=== PATIENT | female | born 1980 | race Caucasian/White ===

== ENCOUNTER 2018-02-21 21:50 | Inpatient (IN) | payer MEDICAID ==
[~2018-02-21] VITALS: Ht 157.5 cm; Wt 68.7 kg
[~2018-02-21 21:50] MED LIST: OLAN10TA3 PO
[2018-02-21 22:53] VITALS: BP 103/73
[2018-02-21] MEDS ORDERED: LORazepam 2 MG TABLET PO PRN (23:00)
[2018-02-21] MEDS ORDERED: OLANZapine 5 MG RAPDIS TABLET PO PRN (23:00)
[2018-02-21] MEDS ORDERED: PNEUMOCOCCAL VACCINE POLYVALENT 0.5 ML VIAL [PPSV23] IM ONE (23:15)
[2018-02-22] MEDS: OLANZapine 10 MG TABLET PO SCH ×2 (00:06→21:00)
[2018-02-22 00:07] VITALS: BP 139/88
[2018-02-22] MEDS: NICOTINE 21 MG/24 HOUR PATCH TD SCH ×2 (08:31→14:17)
[2018-02-22 08:37] LABS: BASOPHILS % (AUTO) 0.5 % (0.0-2.0); EOSINOPHILS % (AUTO) 2.4 % (1.0-6.0); HEMATOCRIT 36.6 % (36-46); HEMOGLOBIN 12.6 g/dL (12.0-16.0); LYMPHOCYTES # (AUTO) 2.8 K/uL (1.0-4.8); LYMPHOCYTES % (AUTO) 35.6 % (22.0-44.0); MEAN CORPUSCULAR HEMOGLOBIN 28.9 pg (26.0-34.0); MEAN CORPUSCULAR HGB CONC 34.5 G/dL (31.0-37.0); MEAN CORPUSCULAR VOLUME 84 fL (80-100); MONOCYTES # (AUTO) 0.4 K/uL (0.1-1.0); MONOCYTES % (AUTO) 5.6 % (2.0-9.0); NEUTROPHILS # (AUTO) 4.4 K/uL (1.8-7.7); NEUTROPHILS % (AUTO) 55.9 % (40.0-70.0); PLATELET COUNT (AUTO) 304 K/uL (150-450); RED BLOOD CELL COUNT(AUTO) 4.37 MIL/uL (4.00-5.20); RED CELL DISTRIBUTION WIDTH 15.5 % (11.5-14.5)
[2018-02-22 08:57] LABS: ALANINE AMINOTRANSFERASE 30 U/L (12-78); ALBUMIN 2.8 g/dL (3.4-5.0); ALKALINE PHOSPHATASE 63 U/L (46-116); ANION GAP 7 mmol/L (8-16); ASPARTATE AMINOTRANSFERASE 36 U/L (15-37); BILIRUBIN,TOTAL 0.6 mg/dL (0.1-1.0); CALCIUM, TOTAL 8.3 mg/dL (8.8-10.5); CARBON DIOXIDE 28 mmol/L (22-29); CHLORIDE 105 mmol/L (98-107); CREATININE 0.67 mg/dL (0.60-1.30); GLOMERULAR FILTR. RATE CALC > 60 mL/min (>60); GLUCOSE,RANDOM 95 mg/dL (70-110); HCG,QUANTITATIVE < 1 mIU/mL (0-6); POTASSIUM 3.4 mmol/L (3.5-5.1); SODIUM SERUM 140 mmol/L (136-145); TOTAL PROTEIN, SERUM 5.9 g/dL (6.4-8.2); UREA NITROGEN, BLOOD 19 mg/dL (7-18)
[2018-02-22 09:39] VITALS: BP 143/70
[2018-02-22 09:53] LABS: AMPHET/METH SCREEN,URINE POSITIVE (NEGATIVE); BARBITURATE SCREEN, URINE NEGATIVE (NEGATIVE); BENZODIAZEPINES SCREEN,URINE NEGATIVE (NEGATIVE); CANNABINOID SCREEN,URINE POSITIVE (NEGATIVE); COCAINE SCREEN,URINE NEGATIVE (NEGATIVE); METHADONE SCREEN, URINE NEGATIVE (NEGATIVE); OPIATE SCREEN,URINE NEGATIVE (NEGATIVE)
[2018-02-22 09:55] LABS: PHENCYCLIDINE SCREEN,URINE NEGATIVE (NEGATIVE)
[2018-02-22] MEDS ORDERED: IBUPROFEN 400 MG TABLET PO PRN (10:00)
[2018-02-22] MEDS ORDERED: ACETAMINOPHEN 325 MG TABLET PO PRN (10:00)
[2018-02-22 10:46] LABS: APPEARANCE,URINE TURBID (CLEAR); BILIRUBIN,URINE NEGATIVE (NEGATIVE); GLUCOSE, URINE (UA) NEGATIVE (NEGATIVE); KETONES,URINE NEGATIVE (NEGATIVE); LEUKOCYTE ESTERASE ,URINE NEGATIVE (NEGATIVE); NITRATE,URINE NEGATIVE (NEGATIVE); OCCULT BLOOD,URINE NEGATIVE (NEGATIVE); PROTEIN,URINE POS 1+ (NEGATIVE); UROBILINOGEN,URINE 0.2 mg/dL (<=1.0)
[2018-02-22 11:07] LABS: AMORPHOUS SEDIMENT,UR Many /LPF (None Seen); BACTERIA,URINE None Seen /HPF (None Seen); RBC,URINE None Seen /HPF (0-2); SQUAMOUS EPITHELIAL CELL,UR Few /LPF (None Seen); WBC,URINE None Seen /HPF (0-5)
[2018-02-22] MEDS ORDERED: POTASSIUM CHLORIDE 20 MEQ ER TABLET PO ONE (12:15)
[2018-02-22 16:57] VITALS: BP 107/68
[2018-02-23 06:47] VITALS: BP 110/68
[2018-02-23 08:12] LABS: HEMOGLOBIN A1C 5.7 % (4.5-6.2)
[2018-02-23 08:31] LABS: POTASSIUM 4.4 mmol/L (3.5-5.1); THYROID STIMULATING HORMONE 0.97 uIU/mL (0.36-3.74)
[2018-02-23 08:57] VITALS: BP 117/74
[2018-02-23] MEDS: NICOTINE 21 MG/24 HOUR PATCH TD SCH (09:00)
[2018-02-23 18:13] VITALS: BP 125/83
[2018-02-23] MEDS: OLANZapine 10 MG TABLET PO SCH (20:45)
[2018-02-24 06:22] VITALS: BP 105/60
[2018-02-24 08:29] VITALS: BP 121/76
[2018-02-24] MEDS: NICOTINE 21 MG/24 HOUR PATCH TD SCH (09:00)
[2018-02-24 17:23] VITALS: BP 121/71
[2018-02-24] MEDS: OLANZapine 10 MG TABLET PO SCH (20:36)
[2018-02-25 06:25] VITALS: BP 113/64
[2018-02-25] MEDS: NICOTINE 21 MG/24 HOUR PATCH TD SCH (09:00)
[2018-02-25 16:30] VITALS: BP 109/66
[2018-02-25] MEDS: OLANZapine 10 MG TABLET PO SCH (20:25)
[2018-02-26 06:33] VITALS: BP 108/63
[2018-02-26] MEDS: NICOTINE 21 MG/24 HOUR PATCH TD SCH (08:52)
[2018-02-26 09:00] VITALS: BP 109/64
== END 2018-02-26 13:30 | disposition home or self-care (01) | DRG 750 ==
LOC: EDSTATUS 23:01 → B2S 23:04
PROVIDERS: ADMIT Psychiatry & Neurology Psychiatry; ATTEND Psychiatry & Neurology Psychiatry
DX: F20.9 Schizophrenia, unspecified (principal); R45.851 Suicidal ideations; Z59.0 Homelessness; I10 Essential (primary) hypertension; E87.6 Hypokalemia; F10.10 Alcohol abuse, uncomplicated; F31.9 Bipolar disorder, unspecified; F19.10 Other psychoactive substance abuse, uncomplicated; K21.9 Gastro-esophageal reflux disease without esophagitis; Z88.8 Allergy status to other drugs, medicaments and biological substances
CPT/HCPCS: 80307; 83036; 84132; 84443; 86592; 90471

== ENCOUNTER 2018-03-08 11:16 | Inpatient (IN) | payer MEDICAID, OTHER ==
[~2018-03-08] VITALS: Ht 157.5 cm; Wt 64.0 kg
[2018-03-08] MEDS ORDERED: OLANZapine 5 MG TABLET PO ONE (13:15)
[2018-03-08 13:31] LABS: BASOPHILS % (AUTO) 0.6 % (0.0-2.0); EOSINOPHILS % (AUTO) 1.6 % (1.0-6.0); HEMATOCRIT 38.9 % (36-46); HEMOGLOBIN 13.3 g/dL (12.0-16.0); LYMPHOCYTES # (AUTO) 3.7 K/uL (1.0-4.8); LYMPHOCYTES % (AUTO) 34.7 % (22.0-44.0); MEAN CORPUSCULAR HEMOGLOBIN 29.1 pg (26.0-34.0); MEAN CORPUSCULAR HGB CONC 34.2 G/dL (31.0-37.0); MEAN CORPUSCULAR VOLUME 85 fL (80-100); MONOCYTES # (AUTO) 0.6 K/uL (0.1-1.0); MONOCYTES % (AUTO) 5.5 % (2.0-9.0); NEUTROPHILS % (AUTO) 57.6 % (40.0-70.0); PLATELET COUNT (AUTO) 332 K/uL (150-450); RED BLOOD CELL COUNT(AUTO) 4.57 MIL/uL (4.00-5.20); RED CELL DISTRIBUTION WIDTH 15.7 % (11.5-14.5)
[2018-03-08 13:38] LABS: ANION GAP 7 mmol/L (8-16); CARBON DIOXIDE 30 mmol/L (22-29); CHLORIDE 106 mmol/L (98-107); CREATININE 1.01 mg/dL (0.60-1.30); GLOMERULAR FILTR. RATE CALC > 60 mL/min (>60); GLUCOSE,RANDOM 111 mg/dL (70-110); POTASSIUM 3.8 mmol/L (3.5-5.1); SODIUM SERUM 143 mmol/L (136-145); UREA NITROGEN, BLOOD 19 mg/dL (7-18)
[2018-03-08 13:44] LABS: ALANINE AMINOTRANSFERASE 32 U/L (12-78); ALBUMIN 3.7 g/dL (3.4-5.0); ALKALINE PHOSPHATASE 76 U/L (46-116); ASPARTATE AMINOTRANSFERASE 32 U/L (15-37); BILIRUBIN,TOTAL 0.8 mg/dL (0.1-1.0); TOTAL PROTEIN, SERUM 7.1 g/dL (6.4-8.2)
[2018-03-08] MEDS ORDERED: LORazepam 2 MG TABLET PO ONE (13:45)
[2018-03-08] MEDS ORDERED: LORazepam 2 MG/ML VIAL IM ONE (14:00)
[2018-03-08] MEDS ORDERED: DiphenhydrAMINE HCL 50 MG/ML VIAL IM ONE (14:00)
[2018-03-08] MEDS ORDERED: LORazepam 2 MG TABLET ONE (14:15)
[2018-03-08] MEDS ORDERED: ZOLPIDEM TARTRATE 10 MG TABLET PO PRN (14:45)
[2018-03-08 15:19] LABS: CHOLESTEROL 181 mg/dL (131-200); FREE T4 (FREE THYROXINE) 0.96 ng/dL (0.76-1.46); HDL CHOLESTEROL 90 mg/dL (40-60); LDL CHOL (CALC.) 79 mg/dL (0-130); THYROID STIMULATING HORMONE 2.09 uIU/mL (0.36-3.74); TRIGLYCERIDES 60 mg/dL (15-150)
[2018-03-09 13:45] VITALS: BP 108/62
[2018-03-09 16:05] VITALS: BP 113/72
[2018-03-09] MEDS: OLANZapine 10 MG TABLET PO SCH (20:52)
[2018-03-10 06:09] VITALS: BP 131/88
[2018-03-10 08:06] VITALS: BP 118/69
[2018-03-10] MEDS ORDERED: ACETAMINOPHEN 325 MG TABLET PO PRN (14:15)
[2018-03-10] MEDS ORDERED: IBUPROFEN 400 MG TABLET PO PRN (14:15)
[2018-03-10 16:18] VITALS: BP 138/66
[2018-03-10] MEDS: OLANZapine 5 MG TABLET PO PRN (17:58)
[2018-03-10] MEDS: LORazepam 2 MG TABLET PO PRN (17:58)
[2018-03-10] MEDS: OLANZapine 10 MG TABLET PO SCH (20:26)
[2018-03-11 03:58] VITALS: BP 121/77
[2018-03-11 08:18] LABS: HEMOGLOBIN A1C 5.7 % (4.5-6.2)
[2018-03-11 08:19] LABS: THYROID STIMULATING HORMONE 0.97 uIU/mL (0.36-3.74)
[2018-03-11 08:22] VITALS: BP 119/58
[2018-03-11 08:28] LABS: AMPHET/METH SCREEN,URINE NEGATIVE (NEGATIVE); BARBITURATE SCREEN, URINE NEGATIVE (NEGATIVE); BENZODIAZEPINES SCREEN,URINE NEGATIVE (NEGATIVE); CANNABINOID SCREEN,URINE POSITIVE (NEGATIVE); COCAINE SCREEN,URINE NEGATIVE (NEGATIVE); METHADONE SCREEN, URINE NEGATIVE (NEGATIVE); OPIATE SCREEN,URINE NEGATIVE (NEGATIVE)
[2018-03-11 08:30] LABS: PHENCYCLIDINE SCREEN,URINE NEGATIVE (NEGATIVE)
[2018-03-11 09:41] LABS: APPEARANCE,URINE CLOUDY (CLEAR); BILIRUBIN,URINE NEGATIVE (NEGATIVE); GLUCOSE, URINE (UA) NEGATIVE (NEGATIVE); KETONES,URINE NEGATIVE (NEGATIVE); LEUKOCYTE ESTERASE ,URINE SMALL (NEGATIVE); NITRATE,URINE NEGATIVE (NEGATIVE); OCCULT BLOOD,URINE NEGATIVE (NEGATIVE); PROTEIN,URINE NEGATIVE (NEGATIVE); UROBILINOGEN,URINE 0.2 mg/dL (<=1.0)
[2018-03-11 10:25] LABS: BACTERIA,URINE None Seen /HPF (None Seen); RBC,URINE 0-2 /HPF (0-2)
[2018-03-11 10:26] LABS: SQUAMOUS EPITHELIAL CELL,UR Few /LPF (None Seen)
[2018-03-11 16:04] VITALS: BP 109/69
[2018-03-11] MEDS: LORazepam 2 MG TABLET PO PRN (16:11)
[2018-03-11 17:11] VITALS: BP 112/65
[2018-03-11] MEDS: OLANZapine 10 MG TABLET PO SCH (20:59)
[2018-03-12 01:16] VITALS: BP 124/67
[2018-03-12 08:45] VITALS: BP 120/79
[2018-03-12] MEDS: LORazepam 2 MG TABLET PO PRN (12:56)
[2018-03-12 16:16] VITALS: BP 112/67
[2018-03-12] MEDS: OLANZapine 10 MG TABLET PO SCH (20:17)
[2018-03-13 03:41] VITALS: BP 115/72
[2018-03-13] MEDS: LORazepam 2 MG TABLET PO PRN ×2 (08:00→16:09)
[2018-03-13 08:33] VITALS: BP 101/62
[2018-03-13 16:07] VITALS: BP 109/70
[2018-03-13] MEDS: OLANZapine 10 MG TABLET PO SCH (20:20)
[2018-03-14] MEDS: LORazepam 2 MG TABLET PO PRN ×2 (08:09→16:12)
[2018-03-14] MEDS: OLANZapine 5 MG TABLET PO PRN (08:09)
[2018-03-14 08:33] VITALS: BP 107/72
[2018-03-14 16:16] VITALS: BP 107/70
[2018-03-14] MEDS: OLANZapine 10 MG TABLET PO SCH (20:34)
[2018-03-15 04:45] VITALS: BP 113/78
[2018-03-15 08:32] VITALS: BP 122/73
[2018-03-15] MEDS ORDERED: OLAN10TA3 PO (10:47)
== END 2018-03-15 15:27 | disposition home or self-care (01) | DRG 750 ==
LOC: EEVIPCON 11:24 → EMS 11:24 → B3A 03-09 12:28
PROVIDERS: ADMIT Psychiatry & Neurology Psychiatry; ATTEND Psychiatry & Neurology Psychiatry
DX: F25.9 Schizoaffective disorder, unspecified (principal); Z91.14 Patient's other noncompliance with medication regimen; I10 Essential (primary) hypertension; F17.200 Nicotine dependence, unspecified, uncomplicated; F32.9 Major depressive disorder, single episode, unspecified; F41.9 Anxiety disorder, unspecified; F15.90 Other stimulant use, unspecified, uncomplicated; F12.90 Cannabis use, unspecified, uncomplicated; K21.9 Gastro-esophageal reflux disease without esophagitis; Z59.0 Homelessness; Z71.51 Drug abuse counseling and surveillance of drug abuser; Z71.6 Tobacco abuse counseling; Z88.8 Allergy status to other drugs, medicaments and biological substances
CPT/HCPCS: 83036; 84439; 84443; 87081; 96372; 99285; G0480; J1200; J2060

== ENCOUNTER 2018-05-27 20:06 | Inpatient (IN) | payer MEDICAID ==
[2018-05-27 20:46] VITALS: BP 149/87
[2018-05-27] MEDS ORDERED: LOPERAMIDE HCL 2 MG CAPSULE PO PRN (21:30)
[2018-05-27] MEDS ORDERED: IBUPROFEN 400 MG TABLET PO PRN (21:30)
[2018-05-27] MEDS ORDERED: ALBUTEROL SULFATE HFA 90 MCG/PUFF 8 GM INHALER IH PRN (21:30)
[2018-05-27] MEDS ORDERED: MAGNESIUM HYDROXIDE SUSPENSION 30 ML UDCUP PO PRN (21:30)
[2018-05-27] MEDS ORDERED: MAG HYDROX/AL HYDROX/SIMETH ES 30 ML SUSPENSION UDCUP PO PRN (21:30)
[2018-05-27] MEDS ORDERED: PETROLATUM,WHITE 71 GM JELLY TP PRN (21:30)
[2018-05-27] MEDS ORDERED: ACETAMINOPHEN 325 MG TABLET PO PRN (21:30)
[2018-05-27] MEDS ORDERED: ONDANSETRON HCL 4 MG TABLET PO PRN (21:30)
[2018-05-27] MEDS ORDERED: DOCUSATE SODIUM 100 MG CAPSULE PO PRN (21:30)
[2018-05-27] MEDS ORDERED: CloNIDine HCL 0.1 MG TABLET PO PRN (21:30)
[2018-05-27] MEDS: LORazepam 2 MG TABLET PO PRN (21:32)
[2018-05-28 06:36] VITALS: BP 128/80
[2018-05-28] MEDS: LORazepam 2 MG TABLET PO PRN ×2 (08:12→16:45)
[2018-05-28 08:14] VITALS: BP 113/62
[2018-05-28] MEDS: ZOLPIDEM TARTRATE 10 MG TABLET PO PRN (20:04)
[2018-05-28] MEDS: OLANZapine 10 MG TABLET PO SCH (20:04)
[2018-05-28 20:50] VITALS: BP 143/79
[2018-05-28 21:00] VITALS: BP 140/75
[2018-05-29 06:37] VITALS: BP 110/64
[2018-05-29 08:50] LABS: APPEARANCE,URINE CLEAR (CLEAR); BILIRUBIN,URINE NEGATIVE (NEGATIVE); GLUCOSE, URINE (UA) NEGATIVE (NEGATIVE); KETONES,URINE NEGATIVE (NEGATIVE); LEUKOCYTE ESTERASE ,URINE NEGATIVE (NEGATIVE); NITRATE,URINE NEGATIVE (NEGATIVE); OCCULT BLOOD,URINE NEGATIVE (NEGATIVE); PH,URINE 5.5 (5.0-8.0); PROTEIN,URINE NEGATIVE (NEGATIVE); UROBILINOGEN,URINE 0.2 mg/dL (<=1.0)
[2018-05-29 08:58] LABS: AMPHET/METH SCREEN,URINE NEGATIVE (NEGATIVE); BARBITURATE SCREEN, URINE NEGATIVE (NEGATIVE); BENZODIAZEPINES SCREEN,URINE NEGATIVE (NEGATIVE); CANNABINOID SCREEN,URINE NEGATIVE (NEGATIVE); COCAINE SCREEN,URINE NEGATIVE (NEGATIVE); METHADONE SCREEN, URINE NEGATIVE (NEGATIVE); OPIATE SCREEN,URINE NEGATIVE (NEGATIVE)
[2018-05-29 08:59] LABS: PHENCYCLIDINE SCREEN,URINE NEGATIVE (NEGATIVE)
[2018-05-29] MEDS: OLANZapine 10 MG TABLET PO SCH (20:06)
[2018-05-29] MEDS: ZOLPIDEM TARTRATE 10 MG TABLET PO PRN (21:11)
[2018-05-30] VITALS: BP 120/68
[2018-05-30] MEDS: LORazepam 2 MG TABLET PO PRN ×2 (12:28→17:05)
[2018-05-30 16:21] VITALS: BP 111/69
[2018-05-30] MEDS: OLANZapine 10 MG TABLET PO SCH (20:07)
[2018-05-31 06:30] VITALS: BP 114/72
[2018-05-31 08:34] VITALS: BP 129/67
[2018-05-31] MEDS: LORazepam 2 MG TABLET PO PRN ×2 (10:36→16:46)
[2018-05-31 16:17] VITALS: BP 112/68
[2018-05-31] MEDS: OLANZapine 10 MG TABLET PO SCH (20:52)
[2018-05-31] MEDS: ZOLPIDEM TARTRATE 10 MG TABLET PO PRN (20:53)
[2018-06-01 05:13] VITALS: BP 119/72
[2018-06-01 08:19] LABS: BASOPHILS % (AUTO) 0.4 % (0.0-2.0); EOSINOPHILS % (AUTO) 1.5 % (1.0-6.0); HEMATOCRIT 37.1 % (36-46); HEMOGLOBIN 12.9 g/dL (12.0-16.0); LYMPHOCYTES # (AUTO) 1.7 K/uL (1.0-4.8); LYMPHOCYTES % (AUTO) 26.5 % (22.0-44.0); MEAN CORPUSCULAR HEMOGLOBIN 29.9 pg (26.0-34.0); MEAN CORPUSCULAR HGB CONC 34.7 G/dL (31.0-37.0); MEAN CORPUSCULAR VOLUME 86 fL (80-100); MONOCYTES # (AUTO) 0.4 K/uL (0.1-1.0); MONOCYTES % (AUTO) 6.5 % (2.0-9.0); NEUTROPHILS # (AUTO) 4.2 K/uL (1.8-7.7); NEUTROPHILS % (AUTO) 65.1 % (40.0-70.0); PLATELET COUNT (AUTO) 234 K/uL (150-450); RED CELL DISTRIBUTION WIDTH 14.1 % (11.5-14.5)
[2018-06-01 08:34] LABS: HEMOGLOBIN A1C 5.1 % (4.5-6.2)
[2018-06-01 09:03] LABS: ALANINE AMINOTRANSFERASE 17 U/L (12-78); ALKALINE PHOSPHATASE 64 U/L (46-116); ANION GAP 8 mmol/L (8-16); ASPARTATE AMINOTRANSFERASE 17 U/L (15-37); BILIRUBIN,TOTAL 0.6 mg/dL (0.1-1.0); CALCIUM, TOTAL 8.2 mg/dL (8.8-10.5); CARBON DIOXIDE 29 mmol/L (22-29); CHLORIDE 102 mmol/L (98-107); CHOL/HDL RATIO 2.7 (3.9-5.7); CHOLESTEROL 126 mg/dL (131-200); CREATININE 0.68 mg/dL (0.60-1.30); FREE T4 (FREE THYROXINE) 0.75 ng/dL (0.76-1.46); GLOMERULAR FILTR. RATE CALC > 60 mL/min (>60); GLUCOSE,RANDOM 85 mg/dL (70-110); HCG,QUANTITATIVE 2 mIU/mL (0-6); HDL CHOLESTEROL 47 mg/dL (40-60); LDL CHOL (CALC.) 59 mg/dL (0-130); POTASSIUM 4.2 mmol/L (3.5-5.1); SODIUM SERUM 139 mmol/L (136-145); THYROID STIMULATING HORMONE 2.93 uIU/mL (0.36-3.74); TOTAL PROTEIN, SERUM 5.8 g/dL (6.4-8.2); TRIGLYCERIDES 102 mg/dL (15-150); UREA NITROGEN, BLOOD 17 mg/dL (7-18)
[2018-06-01] MEDS: LORazepam 2 MG TABLET PO PRN ×2 (12:05→16:23)
[2018-06-01 16:24] VITALS: BP 106/62
[2018-06-01] MEDS: OLANZapine 10 MG TABLET PO SCH (20:27)
[2018-06-01] MEDS: ZOLPIDEM TARTRATE 10 MG TABLET PO PRN (20:27)
[2018-06-02 08:30] VITALS: BP 118/69
[2018-06-02] MEDS: LORazepam 2 MG TABLET PO PRN ×2 (14:24→18:55)
[2018-06-02 16:32] VITALS: BP 118/72
[2018-06-02] MEDS: OLANZapine 10 MG TABLET PO SCH (20:15)
[2018-06-02] MEDS: ZOLPIDEM TARTRATE 10 MG TABLET PO PRN (21:27)
[2018-06-03 04:57] VITALS: BP 115/75
[2018-06-03 08:20] VITALS: BP 116/60
[2018-06-03] MEDS: LORazepam 2 MG TABLET PO PRN (14:22)
[2018-06-03] MEDS: ZOLPIDEM TARTRATE 10 MG TABLET PO PRN (20:10)
[2018-06-03] MEDS: OLANZapine 10 MG TABLET PO SCH (20:10)
[2018-06-04 04:29] VITALS: BP 117/68
[2018-06-04 08:29] VITALS: BP 116/86
[2018-06-04] MEDS: LORazepam 2 MG TABLET PO PRN (12:12)
[2018-06-04] MEDS: OLANZapine 10 MG TABLET PO SCH (21:10)
[2018-06-05 08:22] VITALS: BP 118/71
[2018-06-05] MEDS: LORazepam 2 MG TABLET PO PRN ×2 (12:24→17:46)
[2018-06-05] MEDS: ZOLPIDEM TARTRATE 10 MG TABLET PO PRN (20:36)
[2018-06-05] MEDS: OLANZapine 10 MG TABLET PO SCH (20:36)
[2018-06-06 06:06] VITALS: BP 117/68
== END 2018-06-06 15:45 | disposition home or self-care (01) | DRG 750 ==
LOC: B3A 20:32
PROVIDERS: ADMIT Psychiatry & Neurology Psychiatry; ATTEND Psychiatry & Neurology Psychiatry
DX: F25.9 Schizoaffective disorder, unspecified (principal); Z59.0 Homelessness; F41.9 Anxiety disorder, unspecified; F17.200 Nicotine dependence, unspecified, uncomplicated; G47.00 Insomnia, unspecified; K21.9 Gastro-esophageal reflux disease without esophagitis; F12.90 Cannabis use, unspecified, uncomplicated; F10.10 Alcohol abuse, uncomplicated; Z71.6 Tobacco abuse counseling
CPT/HCPCS: 80307; 83036; 84439; 84443

== ENCOUNTER 2018-06-07 10:44 | Emergency (ER) | payer MEDICAID ==
[~2018-06-07] VITALS: Ht 167.6 cm; Wt 84.5 kg
[2018-06-07] MEDS ORDERED: OLANZapine 5 MG TABLET PO ONE (11:00)
[2018-06-07] MEDS ORDERED: LORazepam 2 MG TABLET PO ONE (11:00)
[2018-06-07 11:13] LABS: BASOPHILS % (AUTO) 0.2 % (0.0-2.0); EOSINOPHILS % (AUTO) 0.1 % (1.0-6.0); HEMATOCRIT 38.6 % (36-46); HEMOGLOBIN 13.1 g/dL (12.0-16.0); LYMPHOCYTES # (AUTO) 1.9 K/uL (1.0-4.8); LYMPHOCYTES % (AUTO) 17.9 % (22.0-44.0); MEAN CORPUSCULAR HEMOGLOBIN 29.5 pg (26.0-34.0); MEAN CORPUSCULAR HGB CONC 33.9 G/dL (31.0-37.0); MEAN CORPUSCULAR VOLUME 87 fL (80-100); MONOCYTES # (AUTO) 0.7 K/uL (0.1-1.0); MONOCYTES % (AUTO) 6.6 % (2.0-9.0); NEUTROPHILS # (AUTO) 8.2 K/uL (1.8-7.7); NEUTROPHILS % (AUTO) 75.2 % (40.0-70.0); PLATELET COUNT (AUTO) 426 K/uL (150-450); RED BLOOD CELL COUNT(AUTO) 4.44 MIL/uL (4.00-5.20); RED CELL DISTRIBUTION WIDTH 14.1 % (11.5-14.5)
[2018-06-07 11:32] LABS: ANION GAP 11 mmol/L (8-16); CALCIUM, TOTAL 9.1 mg/dL (8.8-10.5); CARBON DIOXIDE 29 mmol/L (22-29); CHLORIDE 105 mmol/L (98-107); CREATININE 0.99 mg/dL (0.60-1.30); GLOMERULAR FILTR. RATE CALC > 60 mL/min (>60); GLUCOSE,RANDOM 107 mg/dL (70-110); POTASSIUM 3.8 mmol/L (3.5-5.1); SODIUM SERUM 145 mmol/L (136-145); UREA NITROGEN, BLOOD 21 mg/dL (7-18)
[2018-06-07 11:37] LABS: ALANINE AMINOTRANSFERASE 38 U/L (12-78); ALBUMIN 4.2 g/dL (3.4-5.0); ALKALINE PHOSPHATASE 82 U/L (46-116); ASPARTATE AMINOTRANSFERASE 69 U/L (15-37); BILIRUBIN,TOTAL 0.6 mg/dL (0.1-1.0); TOTAL PROTEIN, SERUM 8.1 g/dL (6.4-8.2)
[2018-06-07 12:38] LABS: AMPHET/METH SCREEN,URINE POSITIVE (NEGATIVE); BARBITURATE SCREEN, URINE NEGATIVE (NEGATIVE); BENZODIAZEPINES SCREEN,URINE NEGATIVE (NEGATIVE); CANNABINOID SCREEN,URINE POSITIVE (NEGATIVE); COCAINE SCREEN,URINE NEGATIVE (NEGATIVE); METHADONE SCREEN, URINE NEGATIVE (NEGATIVE); OPIATE SCREEN,URINE NEGATIVE (NEGATIVE)
[2018-06-07 12:39] LABS: PHENCYCLIDINE SCREEN,URINE NEGATIVE (NEGATIVE)
[2018-06-07 13:51] VITALS: BP 142/86
== END 2018-06-07 14:00 | disposition home or self-care (01) ==
LOC: EMS 10:45
DX: F25.9 Schizoaffective disorder, unspecified (principal); F15.10 Other stimulant abuse, uncomplicated; F12.10 Cannabis abuse, uncomplicated; F31.9 Bipolar disorder, unspecified; F20.9 Schizophrenia, unspecified; F17.210 Nicotine dependence, cigarettes, uncomplicated; Z88.8 Allergy status to other drugs, medicaments and biological substances
CPT/HCPCS: 36415; 80053; 80307; 85025; 99285; 99406; G0480

== ENCOUNTER 2018-09-17 14:41 | Emergency (ER) | payer MEDICAID | END 2018-09-17 15:03 | disposition left against medical advice (07) | LOC: EMS 14:42 | DX: Z00.00 Encounter for general adult medical examination without abnormal findings (principal); Z53.21 Procedure and treatment not carried out due to patient leaving prior to being seen by health care provider ==

== ENCOUNTER 2021-01-03 18:09 | Emergency (ER) | payer MEDICAID, OTHER ==
[~2021-01-03] VITALS: Ht 162.6 cm; Wt 100.0 kg
[~2021-01-03 18:09] MED LIST changes: +OLAN5TAB2 PO
[2021-01-03] MEDS ORDERED: OLANZapine 5 MG TABLET PO ONE (18:45)
[2021-01-03] MEDS ORDERED: LORazepam 1 MG TABLET PO ONE (18:45)
[2021-01-03 19:39] VITALS: BP 139/79
== END 2021-01-03 20:25 | disposition home or self-care (01) ==
LOC: EMS 18:09
DX: F25.9 Schizoaffective disorder, unspecified (principal); F31.9 Bipolar disorder, unspecified; Z79.899 Other long term (current) drug therapy
CPT/HCPCS: 99284; Z7502; Z7610

== ENCOUNTER → 2021-10-01 | Outpatient (CLI) | payer MEDICAID ==
[~2021-10-01] MED LIST changes: -OLAN10TA3 PO; +OLAN10TA74 PO; -OLAN5TAB2 PO; +OLAN5TAB52 PO
[2021-10-02 11:10] LABS: GLUCOMETER DEV NAME(LOC) POC.BV
== END | disposition home or self-care (01) ==
LOC: LABPV 08:00 → EDSTATUS 10:31
PROVIDERS: ATTEND Psychiatry & Neurology Child & Adolescent Psychiatry
DX: Z20.822 Contact with and (suspected) exposure to COVID-19 (principal); F33.8 Other recurrent depressive disorders

== ENCOUNTER 2022-01-04 20:55 | Inpatient (IN) | payer MEDICAID, OTHER ==
[~2022-01-04] VITALS: Ht 157.5 cm; Wt 89.6 kg
[2022-01-04 22:24] LABS: BASOPHILS % (AUTO) 0.6 % (0.0-2.0); EOSINOPHILS % (AUTO) 2.2 % (1.0-6.0); HEMATOCRIT 32.3 % (36-46); HEMOGLOBIN 10.9 g/dL (12.0-16.0); LYMPHOCYTES # (AUTO) 2.4 K/uL (1.0-4.8); LYMPHOCYTES % (AUTO) 28.9 % (22.0-44.0); MEAN CORPUSCULAR HEMOGLOBIN 28.8 pg (26.0-34.0); MEAN CORPUSCULAR HGB CONC 33.7 G/dL (31.0-37.0); MEAN CORPUSCULAR VOLUME 85 fL (80-100); MONOCYTES # (AUTO) 0.6 K/uL (0.1-1.0); MONOCYTES % (AUTO) 6.6 % (2.0-9.0); NEUTROPHILS # (AUTO) 5.2 K/uL (1.8-7.7); NEUTROPHILS % (AUTO) 61.7 % (40.0-70.0); PLATELET COUNT (AUTO) 380 K/uL (150-450); RED BLOOD CELL COUNT(AUTO) 3.79 MIL/uL (4.00-5.20); RED CELL DISTRIBUTION WIDTH 14.6 % (11.5-14.5)
[2022-01-04 22:45] LABS: AMPHET/METH SCREEN,URINE POSITIVE (NEGATIVE); BARBITURATE SCREEN, URINE NEGATIVE (NEGATIVE); BENZODIAZEPINES SCREEN,URINE NEGATIVE (NEGATIVE); CANNABINOID SCREEN,URINE NEGATIVE (NEGATIVE); COCAINE SCREEN,URINE NEGATIVE (NEGATIVE); METHADONE SCREEN, URINE NEGATIVE (NEGATIVE); OPIATE SCREEN,URINE NEGATIVE (NEGATIVE)
[2022-01-04 22:45] LABS: ALANINE AMINOTRANSFERASE 39 U/L (12-78); ALBUMIN 2.8 g/dL (3.4-5.0); ALKALINE PHOSPHATASE 98 U/L (46-116); ANION GAP 8 mmol/L (8-16); ASPARTATE AMINOTRANSFERASE 34 U/L (15-37); BILIRUBIN,TOTAL 0.4 mg/dL (0.1-1.0); CALCIUM, TOTAL 8.5 mg/dL (8.8-10.5); CARBON DIOXIDE 31 mmol/L (22-29); CHLORIDE 100 mmol/L (98-107); CREATININE 0.85 mg/dL (0.60-1.30); GLOMERULAR FILTR. RATE CALC > 60 mL/min (>60); GLUCOSE,RANDOM 139 mg/dL (70-110); HCG,QUANTITATIVE 1 mIU/mL (0-6); SODIUM SERUM 139 mmol/L (136-145); TOTAL PROTEIN, SERUM 6.6 g/dL (6.4-8.2); UREA NITROGEN, BLOOD 7 mg/dL (7-18)
[2022-01-04 22:46] LABS: PHENCYCLIDINE SCREEN,URINE NEGATIVE (NEGATIVE)
[2022-01-04 22:47] LABS: POTASSIUM 2.8 mmol/L (3.5-5.1)
[2022-01-04] MEDS ORDERED: POTASSIUM CHLORIDE 20 MEQ ER TABLET PO ONE (23:00)
[2022-01-04 23:03] LABS: COVID AG,FIA SOURCE NASAL SWAB
[2022-01-05] MEDS ORDERED: POTASSIUM CHLORIDE 20 MEQ ER TABLET PO ONE (04:45)
[2022-01-05] MEDS: LORazepam 2 MG TABLET PO PRN (12:51)
[2022-01-05 22:13] VITALS: BP 138/83
[2022-01-05] MEDS ORDERED: ALBUTEROL SULFATE HFA 90 MCG/PUFF 8 GM INHALER IH PRN (23:15)
[2022-01-06] MEDS ORDERED: INFLUENZA VIRUS VACCINE QVS 2021-22 (6MO+)/PF 60 MCG/0.5 ML SYRINGE IM. ONE (01:15)
[2022-01-06 04:03] VITALS: BP 131/77
[2022-01-06] MEDS ORDERED: ACETAMINOPHEN 325 MG TABLET PO PRN (07:00)
[2022-01-06] MEDS ORDERED: NICOTINE 14 MG/24 HOUR PATCH TD PRN (07:00)
[2022-01-06] MEDS ORDERED: PETROLATUM,WHITE 28 GM JELLY TP PRN (07:00)
[2022-01-06] MEDS ORDERED: LOPERAMIDE HCL 2 MG CAPSULE PO PRN (07:00)
[2022-01-06] MEDS ORDERED: MAG HYDROX/AL HYDROX/SIMETH ES 30 ML SUSPENSION UDCUP PO PRN (07:00)
[2022-01-06] MEDS ORDERED: IBUPROFEN 400 MG TABLET PO PRN (07:00)
[2022-01-06] MEDS ORDERED: DOCUSATE SODIUM 100 MG CAPSULE PO PRN (07:00)
[2022-01-06] MEDS ORDERED: ALBUTEROL SULFATE HFA 90 MCG/PUFF 8 GM INHALER IH PRN (07:00)
[2022-01-06] MEDS ORDERED: MAGNESIUM HYDROXIDE SUSPENSION 30 ML UDCUP PO PRN (07:00)
[2022-01-06] MEDS ORDERED: ONDANSETRON HCL 4 MG TABLET PO PRN (07:00)
[2022-01-06] MEDS ORDERED: GuaiFENesin/D-METHORPHAN [SUGAR-FREE] 200-20MG/10 ML SYRUP UDCUP PO PRN (07:00)
[2022-01-06] MEDS ORDERED: CloNIDine HCL 0.1 MG TABLET PO PRN (07:00)
[2022-01-06 08:23] VITALS: BP 111/65
[2022-01-06] MEDS: LORazepam 2 MG TABLET PO PRN (08:56)
[2022-01-06] MEDS: FLUTICASONE/VILANTEROL 200-25 MCG/INH INHALER [14] IH SCH ×2 (10:00→14:36)
[2022-01-06 17:41] VITALS: BP 144/80
[2022-01-06] MEDS: OLANZapine 10 MG TABLET PO SCH (20:05)
[2022-01-07 06:02] VITALS: BP 112/84
[2022-01-07] MEDS: FLUTICASONE/VILANTEROL 200-25 MCG/INH INHALER [14] IH SCH (08:32)
[2022-01-07 17:00] VITALS: BP 123/75
[2022-01-07] MEDS: LORazepam 2 MG TABLET PO PRN (18:59)
[2022-01-07] MEDS: OLANZapine 10 MG TABLET PO SCH (20:25)
[2022-01-08 06:16] VITALS: BP 120/77
[2022-01-08] MEDS: FLUTICASONE/VILANTEROL 200-25 MCG/INH INHALER [14] IH SCH (07:40)
[2022-01-08 08:26] VITALS: BP 106/71
[2022-01-08 16:26] VITALS: BP 122/62
[2022-01-08] MEDS: OLANZapine 10 MG TABLET PO SCH (20:01)
[2022-01-08] MEDS: ZOLPIDEM TARTRATE 10 MG TABLET PO PRN (20:11)
[2022-01-09 06:34] VITALS: BP 125/55
[2022-01-09 08:11] VITALS: BP 111/69
[2022-01-09] MEDS: FLUTICASONE/VILANTEROL 200-25 MCG/INH INHALER [14] IH SCH (08:51)
[2022-01-09] MEDS: LORazepam 2 MG TABLET PO PRN (12:47)
[2022-01-09 16:08] VITALS: BP 128/77
[2022-01-09] MEDS: ZOLPIDEM TARTRATE 10 MG TABLET PO PRN (20:18)
[2022-01-09] MEDS: OLANZapine 10 MG TABLET PO SCH (20:18)
[2022-01-10 04:16] VITALS: BP 136/77
[2022-01-10 08:02] VITALS: BP 110/68
[2022-01-10] MEDS: FLUTICASONE/VILANTEROL 200-25 MCG/INH INHALER [14] IH SCH (08:43)
[2022-01-10] MEDS: OLANZapine 5 MG RAPDIS TABLET PO PRN (09:23)
[2022-01-10 16:24] VITALS: BP 120/66
[2022-01-10] MEDS: LORazepam 2 MG TABLET PO PRN (17:57)
[2022-01-10] MEDS: OLANZapine 10 MG TABLET PO SCH (20:04)
[2022-01-11 04:37] VITALS: BP 114/62
[2022-01-11 08:02] VITALS: BP 114/65
[2022-01-11] MEDS: FLUTICASONE/VILANTEROL 200-25 MCG/INH INHALER [14] IH SCH (08:23)
[2022-01-11] MEDS: LORazepam 2 MG TABLET PO PRN (08:27)
[2022-01-11 16:04] VITALS: BP 131/66
[2022-01-11] MEDS: ZOLPIDEM TARTRATE 10 MG TABLET PO PRN (20:11)
[2022-01-11] MEDS: OLANZapine 10 MG TABLET PO SCH (20:11)
[2022-01-12 01:59] VITALS: BP 122/62
[2022-01-12 08:04] VITALS: BP 118/67
[2022-01-12] MEDS: FLUTICASONE/VILANTEROL 200-25 MCG/INH INHALER [14] IH SCH (08:42)
[2022-01-12 16:02] VITALS: BP 120/68
[2022-01-12] MEDS: LORazepam 2 MG TABLET PO PRN (16:44)
[2022-01-12] MEDS: OLANZapine 10 MG TABLET PO SCH (20:16)
[2022-01-12] MEDS: ZOLPIDEM TARTRATE 10 MG TABLET PO PRN (20:16)
[2022-01-13 05:33] VITALS: BP 116/64
[2022-01-13 08:07] VITALS: BP 109/73
[2022-01-13] MEDS: FLUTICASONE/VILANTEROL 200-25 MCG/INH INHALER [14] IH SCH (08:37)
[2022-01-13] MEDS: OLANZapine 5 MG RAPDIS TABLET PO PRN (08:37)
[2022-01-13] MEDS ORDERED: OLAN10 PO (10:22)
== END 2022-01-13 14:32 | disposition home or self-care (01) | DRG 750 ==
LOC: EMS 20:55 → B3A 01-05 18:42
PROVIDERS: ADMIT Psychiatry & Neurology Child & Adolescent Psychiatry; ATTEND Psychiatry & Neurology Child & Adolescent Psychiatry
DX: F25.1 Schizoaffective disorder, depressive type (principal); R45.851 Suicidal ideations; F25.0 Schizoaffective disorder, bipolar type; I10 Essential (primary) hypertension; K21.9 Gastro-esophageal reflux disease without esophagitis; F15.10 Other stimulant abuse, uncomplicated; D64.9 Anemia, unspecified; F12.10 Cannabis abuse, uncomplicated; F10.10 Alcohol abuse, uncomplicated; Y90.9 Presence of alcohol in blood, level not specified; F32.A Depression, unspecified; Z20.822 Contact with and (suspected) exposure to COVID-19; Z28.21 Immunization not carried out because of patient refusal; Z88.1 Allergy status to other antibiotic agents; Z88.8 Allergy status to other drugs, medicaments and biological substances; Z71.51 Drug abuse counseling and surveillance of drug abuser; Z71.41 Alcohol abuse counseling and surveillance of alcoholic
CPT/HCPCS: 80053; 83735; 84132; 84702; 85025; 99285; G0480; Q9967

== ENCOUNTER 2022-01-20 10:22 | Inpatient (IN) | payer MEDICAID, OTHER ==
[~2022-01-20] VITALS: Ht 157.5 cm; Wt 88.7 kg
[~2022-01-20 10:22] MED LIST changes: +OLAN10 PO; -OLAN10TA74 PO; -OLAN5TAB52 PO
[2022-01-20] MEDS ORDERED: ZOLPIDEM TARTRATE 10 MG TABLET PO PRN (11:45)
[2022-01-20] MEDS ORDERED: DiphenhydrAMINE HCL 50 MG/ML VIAL IM ONE (12:30)
[2022-01-20] MEDS ORDERED: LORazepam 2 MG/ML VIAL IM ONE (12:30)
[2022-01-20 12:51] LABS: COVID AG,FIA SOURCE NASOPHARYNGEAL
[2022-01-20 13:10] LABS: APPEARANCE,URINE TURBID (CLEAR); BILIRUBIN,URINE NEGATIVE (NEGATIVE); GLUCOSE, URINE (UA) NEGATIVE (NEGATIVE); KETONES,URINE TRACE mg/dL (NEGATIVE); LEUKOCYTE ESTERASE ,URINE MODERATE (NEGATIVE); NITRATE,URINE POSITIVE (NEGATIVE); OCCULT BLOOD,URINE NEGATIVE (NEGATIVE); PROTEIN,URINE 30-70 mg/dL (NEGATIVE); SPECIFIC GRAVITIY, URINE 1.032 (1.003-1.030)
[2022-01-20 13:17] LABS: AMORPHOUS SEDIMENT,UR Many /LPF (None Seen); BACTERIA,URINE Moderate /HPF (None Seen); RBC,URINE None Seen /HPF (0-2); SQUAMOUS EPITHELIAL CELL,UR Few /LPF (None Seen); WBC,URINE 0-2 /HPF (0-5)
[2022-01-20 17:25] VITALS: BP 110/73
[2022-01-20] MEDS ORDERED: INFLUENZA VIRUS VACCINE QVS 2021-22 (6MO+)/PF 60 MCG/0.5 ML SYRINGE IM. ONE (19:45)
[2022-01-21 02:44] VITALS: BP 122/82
[2022-01-21] MEDS: LORazepam 2 MG TABLET PO PRN ×3 (02:49→18:18)
[2022-01-21] MEDS: OLANZapine 5 MG RAPDIS TABLET PO PRN ×2 (02:49→09:13)
[2022-01-21 08:56] VITALS: BP 106/62
[2022-01-21] MEDS ORDERED: LOPERAMIDE HCL 2 MG CAPSULE PO PRN (12:00)
[2022-01-21] MEDS ORDERED: ONDANSETRON HCL 4 MG TABLET PO PRN (12:00)
[2022-01-21] MEDS ORDERED: CloNIDine HCL 0.1 MG TABLET PO PRN (12:00)
[2022-01-21] MEDS ORDERED: MAGNESIUM HYDROXIDE SUSPENSION 30 ML UDCUP PO PRN (12:00)
[2022-01-21] MEDS ORDERED: GuaiFENesin/D-METHORPHAN [SUGAR-FREE] 200-20MG/10 ML SYRUP UDCUP PO PRN (12:00)
[2022-01-21] MEDS ORDERED: MAG HYDROX/AL HYDROX/SIMETH ES 30 ML SUSPENSION UDCUP PO PRN (12:00)
[2022-01-21] MEDS ORDERED: ALBUTEROL SULFATE HFA 90 MCG/PUFF 8 GM INHALER IH PRN (12:00)
[2022-01-21] MEDS ORDERED: PETROLATUM,WHITE 28 GM JELLY TP PRN (12:00)
[2022-01-21] MEDS ORDERED: DOCUSATE SODIUM 100 MG CAPSULE PO PRN (12:00)
[2022-01-21] MEDS ORDERED: NICOTINE 14 MG/24 HOUR PATCH TD PRN (12:00)
[2022-01-21] MEDS: OLANZapine 10 MG TABLET PO SCH ×2 (13:06→20:17)
[2022-01-21 19:22] VITALS: BP 126/75
[2022-01-22 05:06] VITALS: BP 120/78
[2022-01-22] MEDS: OLANZapine 10 MG TABLET PO SCH ×2 (08:02→20:05)
[2022-01-22] MEDS: LORazepam 2 MG TABLET PO PRN ×2 (08:02→16:08)
[2022-01-22] MEDS: OLANZapine 5 MG RAPDIS TABLET PO PRN (08:02)
[2022-01-22 16:04] VITALS: BP 120/68
[2022-01-23 00:54] VITALS: BP 117/78
[2022-01-23 07:16] LABS: APPEARANCE,URINE CLEAR (CLEAR); BILIRUBIN,URINE NEGATIVE (NEGATIVE); GLUCOSE, URINE (UA) NEGATIVE (NEGATIVE); KETONES,URINE NEGATIVE (NEGATIVE); LEUKOCYTE ESTERASE ,URINE NEGATIVE (NEGATIVE); NITRATE,URINE NEGATIVE (NEGATIVE); OCCULT BLOOD,URINE NEGATIVE (NEGATIVE); PROTEIN,URINE NEGATIVE (NEGATIVE); SPECIFIC GRAVITIY, URINE 1.014 (1.003-1.030); UROBILINOGEN,URINE <=1.0 mg/dL (<=1.0)
[2022-01-23 07:29] LABS: AMPHET/METH SCREEN,URINE POSITIVE (NEGATIVE); BARBITURATE SCREEN, URINE NEGATIVE (NEGATIVE); BENZODIAZEPINES SCREEN,URINE NEGATIVE (NEGATIVE); CANNABINOID SCREEN,URINE NEGATIVE (NEGATIVE); COCAINE SCREEN,URINE NEGATIVE (NEGATIVE); METHADONE SCREEN, URINE NEGATIVE (NEGATIVE); OPIATE SCREEN,URINE NEGATIVE (NEGATIVE)
[2022-01-23 07:30] LABS: PHENCYCLIDINE SCREEN,URINE NEGATIVE (NEGATIVE)
[2022-01-23] MEDS: OLANZapine 10 MG TABLET PO SCH ×2 (08:01→20:26)
[2022-01-23] MEDS: LORazepam 2 MG TABLET PO PRN ×2 (08:01→18:03)
[2022-01-23 16:16] VITALS: BP 109/62
[2022-01-23] MEDS: IBUPROFEN 400 MG TABLET PO PRN (18:03)
[2022-01-24 00:51] VITALS: BP 126/72
[2022-01-24] MEDS: OLANZapine 10 MG TABLET PO SCH ×2 (08:00→20:04)
[2022-01-24] MEDS: LORazepam 2 MG TABLET PO PRN ×2 (08:00→15:59)
[2022-01-24 08:04] VITALS: BP 110/65
[2022-01-24 16:07] VITALS: BP 121/67
[2022-01-25 00:27] VITALS: BP 119/76
[2022-01-25] MEDS: LORazepam 2 MG TABLET PO PRN ×2 (08:03→16:12)
[2022-01-25] MEDS: OLANZapine 10 MG TABLET PO SCH ×2 (08:03→20:26)
[2022-01-25 08:10] VITALS: BP 112/69
[2022-01-25 16:02] VITALS: BP 113/61
[2022-01-25] MEDS: ACETAMINOPHEN 325 MG TABLET PO PRN (16:35)
[2022-01-26 06:53] VITALS: BP 115/68
[2022-01-26 07:45] LABS: GLUCOMETER DEV NAME(LOC) POC.BV
[2022-01-26 08:07] VITALS: BP 113/67
[2022-01-26] MEDS: OLANZapine 10 MG TABLET PO SCH ×2 (08:38→20:00)
[2022-01-26] MEDS: IBUPROFEN 400 MG TABLET PO PRN (14:19)
[2022-01-26 16:05] VITALS: BP 109/61
[2022-01-26] MEDS: LORazepam 2 MG TABLET PO PRN (20:00)
[2022-01-27 00:50] VITALS: BP 111/63
[2022-01-27 08:12] VITALS: BP 106/66
[2022-01-27] MEDS: OLANZapine 10 MG TABLET PO SCH ×2 (09:04→20:19)
[2022-01-27 16:03] VITALS: BP 135/78
[2022-01-27] MEDS: LORazepam 2 MG TABLET PO PRN (16:05)
[2022-01-28 00:34] VITALS: BP 122/73
[2022-01-28 08:02] VITALS: BP 115/51
[2022-01-28] MEDS: OLANZapine 10 MG TABLET PO SCH ×2 (08:05→20:56)
[2022-01-28 16:03] VITALS: BP 115/66
[2022-01-28] MEDS: LORazepam 2 MG TABLET PO PRN (19:14)
[2022-01-28] MEDS: IBUPROFEN 400 MG TABLET PO PRN (19:35)
[2022-01-29 01:57] VITALS: BP 119/72
[2022-01-29 08:03] VITALS: BP 118/51
[2022-01-29] MEDS: OLANZapine 10 MG TABLET PO SCH ×2 (08:08→20:02)
[2022-01-29 16:03] VITALS: BP 109/66
[2022-01-29 18:15] VITALS: BP 112/68
[2022-01-29] MEDS: ACETAMINOPHEN 325 MG TABLET PO PRN (18:17)
[2022-01-29 19:04] VITALS: BP 116/67
[2022-01-29] MEDS: IBUPROFEN 400 MG TABLET PO PRN (19:04)
[2022-01-30 00:33] VITALS: BP 111/63
[2022-01-30 08:11] VITALS: BP 105/59
[2022-01-30] MEDS: OLANZapine 10 MG TABLET PO SCH ×2 (08:11→20:00)
[2022-01-30] MEDS: IBUPROFEN 400 MG TABLET PO PRN (12:46)
[2022-01-30 16:01] VITALS: BP 124/72
[2022-01-30 20:55] VITALS: BP 120/67
[2022-01-30] MEDS: ACETAMINOPHEN 325 MG TABLET PO PRN (20:58)
[2022-01-31 06:11] VITALS: BP 101/59
[2022-01-31 09:25] VITALS: BP 113/76
[2022-01-31] MEDS: OLANZapine 10 MG TABLET PO SCH ×2 (09:31→20:29)
[2022-01-31 16:02] VITALS: BP 117/74
[2022-02-01 00:47] VITALS: BP 112/73
[2022-02-01 08:04] VITALS: BP 116/80
[2022-02-01] MEDS: OLANZapine 10 MG TABLET PO SCH ×2 (08:31→20:02)
[2022-02-01 16:01] VITALS: BP 103/69
[2022-02-01] MEDS: ACETAMINOPHEN 325 MG TABLET PO PRN (20:03)
[2022-02-02 05:22] VITALS: BP 104/62
[2022-02-02 08:11] VITALS: BP 101/69
[2022-02-02] MEDS: OLANZapine 10 MG TABLET PO SCH ×2 (08:34→20:00)
[2022-02-02 08:45] LABS: GLUCOMETER DEV NAME(LOC) POC.BV
[2022-02-02 16:05] VITALS: BP 119/75
[2022-02-02] MEDS: IBUPROFEN 400 MG TABLET PO PRN (18:11)
[2022-02-03 06:03] VITALS: BP 109/65
[2022-02-03] MEDS: OLANZapine 10 MG TABLET PO SCH ×2 (08:15→20:24)
[2022-02-03 08:32] VITALS: BP 102/63
[2022-02-03 16:04] VITALS: BP 104/66
[2022-02-04 00:35] VITALS: BP 108/64
[2022-02-04 08:25] LABS: HEMOGLOBIN A1C 5.9 % (3.8-5.6)
[2022-02-04 08:37] VITALS: BP 110/65
[2022-02-04 08:37] LABS: CHOL/HDL RATIO 3.6 (3.9-5.7)
[2022-02-04] MEDS: OLANZapine 10 MG TABLET PO SCH ×2 (08:57→20:01)
[2022-02-04 16:03] VITALS: BP 107/60
[2022-02-05 00:05] VITALS: BP 103/65
[2022-02-05 08:08] VITALS: BP 110/65
[2022-02-05] MEDS: OLANZapine 10 MG TABLET PO SCH ×2 (08:09→20:07)
[2022-02-05 16:02] VITALS: BP 102/65
[2022-02-05 17:52] LABS: GLUCOMETER DEV NAME(LOC) POC.BV
[2022-02-06 00:06] VITALS: BP 115/62
[2022-02-06] MEDS: OLANZapine 10 MG TABLET PO SCH (08:05)
[2022-02-06 08:10] VITALS: BP 109/64
[2022-02-06] MEDS ORDERED: OLAN10TA74 PO (10:24)
[2022-02-06] MEDS ORDERED: OLAN10 PO (11:49)
== END 2022-02-06 12:30 | disposition home or self-care (01) | DRG 750 ==
LOC: EMS 10:22 → B2S 14:05
PROVIDERS: ADMIT Psychiatry & Neurology Child & Adolescent Psychiatry; ATTEND Psychiatry & Neurology Child & Adolescent Psychiatry
DX: F25.0 Schizoaffective disorder, bipolar type (principal); R45.851 Suicidal ideations; Z59.00 Homelessness unspecified; F17.200 Nicotine dependence, unspecified, uncomplicated; Z20.822 Contact with and (suspected) exposure to COVID-19; G47.00 Insomnia, unspecified; I10 Essential (primary) hypertension; K21.9 Gastro-esophageal reflux disease without esophagitis; Z88.8 Allergy status to other drugs, medicaments and biological substances; Z71.6 Tobacco abuse counseling
CPT/HCPCS: 80061; 80307; 81001; 81003; 83036; 87081; 87086; 99285; J1200; J2060; J3535

== ENCOUNTER 2024-05-24 00:26 | Emergency (ER) | payer MEDICAID, OTHER | END 2024-05-24 01:56 | disposition left against medical advice (07) | LOC: EMS 00:27 | DX: Z53.21 Procedure and treatment not carried out due to patient leaving prior to being seen by health care provider (principal) ==